=== PATIENT | female | born 2000 | race African-American/Black ===

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

== ENCOUNTER 2019-09-22 16:55 | Emergency (ER) | payer MEDICAID ==
[~2019-09-22] VITALS: Ht 160 cm; Wt 104.5 kg
[2019-09-22 18:21] VITALS: Ht 160 cm; Wt 104.5 kg
[2019-09-22] MEDS ORDERED: KEFLEX500 MG PO (18:50)
[2019-09-22 19:34] VITALS: BP 121/77
== END 2019-09-22 19:34 | disposition home or self-care (01) ==
LOC: D.ER 16:55
DX: S61.411A Laceration without foreign body of right hand, initial encounter (principal); W25.XXXA Contact with sharp glass, initial encounter; Y93.9 Activity, unspecified; Y92.9 Unspecified place or not applicable

== ENCOUNTER 2019-10-18 07:14 | Emergency (ER) | payer MEDICAID ==
[~2019-10-18] VITALS: Ht 160 cm; Wt 106.8 kg
[~2019-10-18 07:14] MED LIST: KEFLEX500 MG PO
[2019-10-18 07:16] VITALS: Ht 160 cm; Wt 106.8 kg
[2019-10-18] MEDS ORDERED: HYDROCODON-ACE1 EA10 PO (10:15)
[2019-10-18 10:25] VITALS: BP 127/72
== END 2019-10-18 10:27 | disposition home or self-care (01) ==
LOC: D.ER 07:14
DX: S02.40EA Zygomatic fracture, right side, initial encounter for closed fracture (principal); S60.512A Abrasion of left hand, initial encounter; S60.511A Abrasion of right hand, initial encounter; Y09 Assault by unspecified means